=== PATIENT | female | born 1975 | race Caucasian/White ===

== ENCOUNTER 2022-01-27 16:20 | Inpatient (IN) | payer OTHER ==
[2022-01-27 16:41] VITALS: BMI 26.2
[2022-01-27 19:30] LABS: BASO % 0.4 % (0-2.0); EOS % 0.9 % (0-4.5); HEMATOCRIT 39.4 % (32.4-45.2); LYMPH % 21.8 % (8-40); MCH 31.3 pg (25.7-33.7); MCHC 32.9 g/dl (32.0-36.0); MEAN PLT VOLUME 9.3 fl (7.5-11.1); MONO % 6.3 % (3.8-10.2); NEUT % 70.6 % (42.8-82.8); PLATELET COUNT 242 10^3/uL (134-434); RBC 4.15 M/mm3 (3.60-5.2); RDW 13.7 % (11.6-15.6)
[2022-01-27 19:38] LABS: INR 1.03 (0.83-1.09); PROTHROMBIN TIME (PATIENT) 11.8 SEC (9.7-13.0)
[2022-01-27] MEDS ORDERED: morphine CARPU-JECT 4 MG/1 ML DISP.SYRIN IVPUSH ONE (20:22)
[2022-01-27] MEDS ORDERED: morphine SULFATE 4 MG/ML VIAL ONE (20:26)
[2022-01-27 20:40] LABS: ALBUMIN 3.6 g/dl (3.4-5.0); BLOOD UREA NITROGEN 22.9 mg/dL (7-18); CALCIUM 9.3 mg/dL (8.5-10.1)
[2022-01-27 20:43] LABS: CREATININE 0.7 mg/dL (0.55-1.3)
[2022-01-27 20:46] LABS: BILIRUBIN,TOTAL 0.3 mg/dL (0.2-1)
[2022-01-27 21:21] LABS: PH,URINE 5.5 (5.0-8.0); URINE APPEARANCE CLEAR; URINE BILIRUBIN NEGATIVE (NEGATIVE); URINE COLOR YELLOW; URINE GLUCOSE (UA) NEGATIVE (NEGATIVE); URINE KETONE NEGATIVE (NEGATIVE); URINE LEUK ESTERASE NEGATIVE (NEGATIVE); URINE NITRITE NEGATIVE (NEGATIVE); URINE PROTEIN NEGATIVE (NEGATIVE); URINE UROBILINOGEN 0.2 mg/dL (0.2-1.0)
[2022-01-28] MEDS ORDERED: clonazePAM 0.5 MG TABLET PO PRN (01:03)
[2022-01-28] MEDS ORDERED: ERGOCALCIFEROL (VIT D2) 50,000 UNIT (1.25 MG) CAPSULE PO SCH (01:15)
[2022-01-28] MEDS ORDERED: ACETAMINOPHEN INJECTION 100 ML IVPB ONE ×2 (01:23→09:42)
[2022-01-28] MEDS: ACETAMINOPHEN 1000 MG/100 ML BAG IVPB PRN ×2 (01:25→10:05)
[2022-01-28 07:57] LABS: BASO % 0.4 % (0-2.0); EOS % 1.1 % (0-4.5); HEMATOCRIT 36.6 % (32.4-45.2); HEMOGLOBIN 12.4 GM/dL (10.7-15.3); LYMPH % 31.3 % (8-40); MCH 31.4 pg (25.7-33.7); MCHC 33.9 g/dl (32.0-36.0); MEAN CELL VOLUME 92.9 fl (80-96); MEAN PLT VOLUME 8.9 fl (7.5-11.1); MONO % 8.2 % (3.8-10.2); PLATELET COUNT 200 10^3/uL (134-434); RBC 3.94 M/mm3 (3.60-5.2); RDW 13.2 % (11.6-15.6); WHITE BLOOD COUNT 5.7 K/mm3 (4.0-10.0)
[2022-01-28 08:19] LABS: CALCIUM 8.7 mg/dL (8.5-10.1)
[2022-01-28 08:20] LABS: ALBUMIN 3.3 g/dl (3.4-5.0); BLOOD UREA NITROGEN 19.9 mg/dL (7-18); MAGNESIUM 2.2 mg/dL (1.8-2.4)
[2022-01-28 08:23] LABS: CREATININE 0.5 mg/dL (0.55-1.3); PHOSPHOROUS 3.9 mg/dL (2.5-4.9)
[2022-01-28 08:25] LABS: BILIRUBIN,TOTAL 0.5 mg/dL (0.2-1); TOT PROT 6.2 g/dl (6.4-8.2)
[2022-01-28] MEDS ORDERED: LOSARTAN POTASSIUM 50 MG TABLET ONE (09:41)
[2022-01-28] MEDS ORDERED: TOPIRAMATE 25 MG TABLET ONE (09:41)
[2022-01-28] MEDS ORDERED: CARVEDILOL 6.25 MG TABLET (FP) ONE (09:42)
[2022-01-28] MEDS ORDERED: CITALOPRAM HYDROBROMIDE 10 MG TABLET ONE (09:42)
[2022-01-28] MEDS ORDERED: GABAPENTIN 400 MG CAPSULE ONE ×2 (09:42→14:48)
[2022-01-28] MEDS ORDERED: ENOXAPARIN NA (PORCINE) 40 MG/0.4 ML DISP.SYRIN SQ ONE (09:42)
[2022-01-28] MEDS ORDERED: ENOXAPARIN NA (PORCINE) 40 MG/0.4 ML DISP.SYRIN SQ SCH (10:00)
[2022-01-28] MEDS: TOPIRAMATE 25 MG TABLET PO SCH ×2 (10:06→22:25)
[2022-01-28] MEDS: LOSARTAN POTASSIUM 25 MG TABLET PO SCH (10:06)
[2022-01-28] MEDS: CARVEDILOL 6.25 MG TABLET (FP) PO SCH ×2 (10:06→22:26)
[2022-01-28] MEDS: GABAPENTIN 400 MG CAPSULE PO SCH ×3 (10:06→22:25)
[2022-01-28] MEDS: CITALOPRAM HYDROBROMIDE 20 MG TABLET PO SCH (10:06)
[2022-01-28] MEDS: SENNOSIDES 8.6MG TABLET (FP) PO SCH (22:25)
[2022-01-28] MEDS: traZODone HCL 50 MG TABLET (FP) PO SCH (22:26)
[2022-01-29] MEDS: GABAPENTIN 400 MG CAPSULE PO SCH ×3 (06:40→21:28)
[2022-01-29 11:09] LABS: BASO % 0.3 % (0-2.0); EOS % 1.3 % (0-4.5); HEMATOCRIT 38.4 % (32.4-45.2); HEMOGLOBIN 12.9 GM/dL (10.7-15.3); LYMPH % 23.6 % (8-40); MCH 31.3 pg (25.7-33.7); MCHC 33.6 g/dl (32.0-36.0); MEAN CELL VOLUME 93.2 fl (80-96); MEAN PLT VOLUME 9.1 fl (7.5-11.1); MONO % 7.7 % (3.8-10.2); NEUT % 67.1 % (42.8-82.8); PLATELET COUNT 223 10^3/uL (134-434); RBC 4.12 M/mm3 (3.60-5.2); RDW 13.5 % (11.6-15.6); WHITE BLOOD COUNT 5.5 K/mm3 (4.0-10.0)
[2022-01-29] MEDS: CITALOPRAM HYDROBROMIDE 20 MG TABLET PO SCH (11:13)
[2022-01-29] MEDS: TOPIRAMATE 25 MG TABLET PO SCH ×2 (11:14→21:28)
[2022-01-29] MEDS: LOSARTAN POTASSIUM 25 MG TABLET PO SCH (11:14)
[2022-01-29] MEDS: CARVEDILOL 6.25 MG TABLET (FP) PO SCH ×2 (11:15→21:28)
[2022-01-29 11:33] LABS: CALCIUM 8.8 mg/dL (8.5-10.1)
[2022-01-29 11:34] LABS: BLOOD UREA NITROGEN 14.8 mg/dL (7-18); MAGNESIUM 2.2 mg/dL (1.8-2.4)
[2022-01-29 11:36] LABS: CREATININE 0.7 mg/dL (0.55-1.3); PHOSPHOROUS 3.1 mg/dL (2.5-4.9)
[2022-01-29] MEDS ORDERED: ACETAMINOPHEN 1000 MG/100 ML BAG IVPB PRN (12:20)
[2022-01-29] MEDS ORDERED: ERGOCALCIFEROL (VIT D2) 50,000 UNIT (1.25 MG) CAPSULE PO SCH (18:00)
[2022-01-29] MEDS: ACETAMINOPHEN 325 MG TABLET (FP) PO PRN (18:12)
[2022-01-29] MEDS: traZODone HCL 50 MG TABLET (FP) PO SCH (21:28)
[2022-01-29] MEDS: SENNOSIDES 8.6MG TABLET (FP) PO SCH (21:28)
[2022-01-30] MEDS: ACETAMINOPHEN 325 MG TABLET (FP) PO PRN ×2 (06:02→13:55)
[2022-01-30] MEDS: GABAPENTIN 400 MG CAPSULE PO SCH ×3 (06:05→21:19)
[2022-01-30] MEDS: TOPIRAMATE 25 MG TABLET PO SCH ×2 (09:57→21:19)
[2022-01-30] MEDS: CITALOPRAM HYDROBROMIDE 20 MG TABLET PO SCH (09:57)
[2022-01-30] MEDS: LOSARTAN POTASSIUM 25 MG TABLET PO SCH (09:57)
[2022-01-30] MEDS: CARVEDILOL 6.25 MG TABLET (FP) PO SCH ×2 (09:59→21:19)
[2022-01-30] MEDS: SENNOSIDES 8.6MG TABLET (FP) PO SCH (21:19)
[2022-01-30] MEDS: traZODone HCL 50 MG TABLET (FP) PO SCH (21:19)
[2022-01-31] MEDS: GABAPENTIN 400 MG CAPSULE PO SCH ×3 (05:53→21:04)
[2022-01-31] MEDS: ACETAMINOPHEN 325 MG TABLET (FP) PO PRN (05:53)
[2022-01-31] MEDS: LOSARTAN POTASSIUM 25 MG TABLET PO SCH (10:24)
[2022-01-31] MEDS: CARVEDILOL 6.25 MG TABLET (FP) PO SCH ×2 (10:24→21:04)
[2022-01-31] MEDS: TOPIRAMATE 25 MG TABLET PO SCH ×2 (10:34→21:04)
[2022-01-31] MEDS: CITALOPRAM HYDROBROMIDE 20 MG TABLET PO SCH (10:34)
[2022-01-31] MEDS ORDERED: ACETAMINOPHEN 1000 MG/100 ML BAG IVPB PRN (11:30)
[2022-01-31] MEDS ORDERED: THROMBIN (BOVINE) 20,000 UNIT VIAL TP ONE (14:34)
[2022-01-31] MEDS ORDERED: ceFAZolin SODIUM 1 GM VIAL ONE (14:34)
[2022-01-31] MEDS ORDERED: BUPIVACAINE HCL/PF 0.5% (5MG/ML) 10 ML VIAL ONE (14:34)
[2022-01-31] MEDS ORDERED: MIDAZOLAM HCL 2 MG/2 ML SINGLE DOSE VIAL ONE (14:42)
[2022-01-31] MEDS ORDERED: KETAMINE HCL 200 MG/20 ML VIAL ONE (15:17)
[2022-01-31] MEDS ORDERED: ROCURONIUM BROMIDE 50 MG/5 ML SYRINGE ONE (15:45)
[2022-01-31] MEDS ORDERED: ceFAZolin SODIUM 1 GM VIAL IVPB ONE (15:55)
[2022-01-31] MEDS ORDERED: NEOSTIGMINE METHYLSULFATE 0.5 MG/1 ML - 10 ML MDV ONE (16:20)
[2022-01-31] MEDS ORDERED: GLYCOPYRROLATE 0.2 MG/1 ML VIAL ONE (16:20)
[2022-01-31] MEDS ORDERED: ONDANSETRON 4 MG/2 ML VIAL ONE (16:20)
[2022-01-31] MEDS ORDERED: DEXAMETHASONE SOD PHOSPHATE 4 MG/1 ML VIAL ONE (16:20)
[2022-01-31] MEDS ORDERED: HYDROmorphone HCl 2 MG/ML VIAL ONE (17:01)
[2022-01-31] MEDS ORDERED: ONDANSETRON 4 MG/2 ML VIAL IVPUSH PRN ×2 (18:07→18:37)
[2022-01-31] MEDS ORDERED: LACTATED RINGERS SOLUTION 1,000 ML IV SCH (18:15)
[2022-01-31] MEDS ORDERED: clonazePAM 0.5 MG TABLET PO PRN (18:37)
[2022-01-31] MEDS: LACTATED RINGERS SOLUTION 1,000 ML IV SCH (20:23)
[2022-01-31] MEDS ORDERED: traZODone HCL 50 MG TABLET (FP) PO SCH (22:00)
[2022-01-31] MEDS ORDERED: SENNOSIDES 8.6MG TABLET (FP) PO SCH (22:00)
[2022-02-01] MEDS: GABAPENTIN 400 MG CAPSULE PO SCH ×2 (05:41→14:23)
[2022-02-01] MEDS: ACETAMINOPHEN 1000 MG/100 ML BAG IVPB PRN ×2 (08:40→14:23)
[2022-02-01] MEDS: LACTATED RINGERS SOLUTION 1,000 ML IV SCH (08:40)
[2022-02-01] MEDS: TOPIRAMATE 25 MG TABLET PO SCH (09:25)
[2022-02-01] MEDS: CARVEDILOL 6.25 MG TABLET (FP) PO SCH (09:46)
[2022-02-01] MEDS ORDERED: ARTIFICIAL TEARS (POLYVINYL ALCOHOL) OPTH DROPS OU PRN ×2 (10:00→22:01)
[2022-02-01] MEDS ORDERED: LOSARTAN POTASSIUM 25 MG TABLET PO SCH (10:00)
[2022-02-01] MEDS ORDERED: CITALOPRAM HYDROBROMIDE 20 MG TABLET PO SCH (10:00)
[2022-02-01 11:04] LABS: BASO % 0.1 % (0-2.0); EOS % 0.1 % (0-4.5); HEMATOCRIT 35.5 % (32.4-45.2); HEMOGLOBIN 11.8 GM/dL (10.7-15.3); LYMPH % 10.1 % (8-40); MCH 31.4 pg (25.7-33.7); MCHC 33.2 g/dl (32.0-36.0); MEAN CELL VOLUME 94.4 fl (80-96); MEAN PLT VOLUME 9.5 fl (7.5-11.1); MONO % 5.8 % (3.8-10.2); NEUT % 83.9 % (42.8-82.8); PLATELET COUNT 222 10^3/uL (134-434); RBC 3.76 M/mm3 (3.60-5.2); RDW 13.1 % (11.6-15.6)
[2022-02-01] MEDS ORDERED: ACETAMINOPHEN 325 MG TABLET (FP) PO PRN (11:37)
[2022-02-01] MEDS ORDERED: ONDANSETRON 4 MG/2 ML VIAL IVPUSH PRN (11:37)
[2022-02-01] MEDS ORDERED: LACTATED RINGERS SOLUTION 1,000 ML IV SCH ×2 (11:45→20:15)
[2022-02-01 13:22] LABS: CALCIUM 8.8 mg/dL (8.5-10.1); MAGNESIUM 1.9 mg/dL (1.8-2.4)
[2022-02-01 13:26] LABS: CREATININE 0.6 mg/dL (0.55-1.3); PHOSPHOROUS 3.8 mg/dL (2.5-4.9)
[2022-02-01] MEDS ORDERED: PROPOFOL 20 ML ONE ×9 (13:28→18:17)
[2022-02-01] MEDS ORDERED: MIDAZOLAM HCL 2 MG/2 ML SINGLE DOSE VIAL ONE (13:34)
[2022-02-01] MEDS ORDERED: ceFAZolin SODIUM 1 GM VIAL ONE (15:26)
[2022-02-01] MEDS ORDERED: BENZOIN/ALOE VERA/STORAX/TOLU 58 ML BOTTLE ONE (15:44)
[2022-02-01] MEDS ORDERED: ceFAZolin SODIUM 1 GM VIAL IVPB ONE (16:03)
[2022-02-01 19:45] LABS: HEMATOCRIT 26.2 % (32.4-45.2); HEMOGLOBIN 8.7 GM/dL (10.7-15.3); MCH 31.2 pg (25.7-33.7); MCHC 33.2 g/dl (32.0-36.0); MEAN PLT VOLUME 9.5 fl (7.5-11.1); PLATELET COUNT 173 10^3/uL (134-434); RBC 2.79 M/mm3 (3.60-5.2); RDW 13.1 % (11.6-15.6); WHITE BLOOD COUNT 13.1 K/mm3 (4.0-10.0)
[2022-02-01] MEDS ORDERED: HYDROmorphone *PCA* 10MG/50ML DISP.SYRIN ONE (20:12)
[2022-02-01] MEDS ORDERED: HYDROmorphone *PCA* 10MG/50ML DISP.SYRIN PCA SCH (20:15)
[2022-02-01] MEDS ORDERED: MUPIROCIN 2% TOPICAL OINTMENT FOR DECOLONIZATION NS SCH (22:00)
[2022-02-01] MEDS ORDERED: CHLORHEXIDINE GLUCONATE 4% CLEANSER FOR DECOLONIZATION TP SCH (22:00)
[2022-02-01 22:21] LABS: BASO % 0.2 % (0-2.0); EOS % 0.2 % (0-4.5); HEMATOCRIT 27.3 % (32.4-45.2); LYMPH % 11.6 % (8-40); MCH 31.2 pg (25.7-33.7); MCHC 33.2 g/dl (32.0-36.0); MEAN PLT VOLUME 9.2 fl (7.5-11.1); MONO % 6.2 % (3.8-10.2); NEUT % 81.8 % (42.8-82.8); PLATELET COUNT 151 10^3/uL (134-434); RDW 13.2 % (11.6-15.6)
[2022-02-01 22:41] LABS: BLOOD UREA NITROGEN 9.3 mg/dL (7-18); CALCIUM 8.1 mg/dL (8.5-10.1)
[2022-02-01 22:45] LABS: CREATININE 0.6 mg/dL (0.55-1.3)
[2022-02-01] MEDS: ACETAMINOPHEN 1000 MG/100 ML BAG IVPB SCH (22:53)
[2022-02-01] MEDS: MUPIROCIN 2% TOPICAL OINTMENT FOR DECOLONIZATION NS SCH (22:54)
[2022-02-01] MEDS: CHLORHEXIDINE GLUCONATE 4% CLEANSER FOR DECOLONIZATION TP SCH (22:54)
[2022-02-02] MEDS: HYDROmorphone *PCA* 10MG/50ML DISP.SYRIN PCA SCH (00:26)
[2022-02-02] MEDS: METHOCARBAMOL 500 MG TABLET PO SCH ×4 (00:28→21:24)
[2022-02-02] MEDS ORDERED: DEXTROSE 5%-WATER - 50 ML IVPB ONE ×4 (00:32→20:26)
[2022-02-02] MEDS ORDERED: ceFAZolin SODIUM 1 GM VIAL ONE ×4 (00:32→20:25)
[2022-02-02] MEDS: CEFAZOLIN 1 GM in DEXTROSE 5%-WATER - 50 ML IVPB SCH ×4 (00:33→17:10)
[2022-02-02] MEDS: ACETAMINOPHEN 1000 MG/100 ML BAG IVPB SCH ×4 (05:53→19:50)
[2022-02-02] MEDS: GABAPENTIN 400 MG CAPSULE PO SCH ×3 (06:04→21:23)
[2022-02-02] MEDS ORDERED: LACTATED RINGERS SOLUTION 1000 ML INFUS.BAG IV ONE (07:21)
[2022-02-02 07:36] LABS: BASO % 0.2 % (0-2.0); EOS % 0.3 % (0-4.5); HEMATOCRIT 28.2 % (32.4-45.2); HEMOGLOBIN 9.5 GM/dL (10.7-15.3); LYMPH % 14.9 % (8-40); MCH 31.1 pg (25.7-33.7); MCHC 33.7 g/dl (32.0-36.0); MEAN CELL VOLUME 92.4 fl (80-96); MEAN PLT VOLUME 9.9 fl (7.5-11.1); MONO % 7.4 % (3.8-10.2); NEUT % 77.2 % (42.8-82.8); PLATELET COUNT 134 10^3/uL (134-434); RBC 3.05 M/mm3 (3.60-5.2); RDW 13.8 % (11.6-15.6)
[2022-02-02 07:53] LABS: BLOOD UREA NITROGEN 10.7 mg/dL (7-18); CALCIUM 7.7 mg/dL (8.5-10.1); MAGNESIUM 1.7 mg/dL (1.8-2.4)
[2022-02-02 07:57] LABS: CREATININE 0.5 mg/dL (0.55-1.3); PHOSPHOROUS 3.1 mg/dL (2.5-4.9)
[2022-02-02] MEDS: TOPIRAMATE 25 MG TABLET PO SCH ×2 (09:30→21:25)
[2022-02-02] MEDS: clonazePAM 0.5 MG TABLET PO PRN (09:31)
[2022-02-02] MEDS: CITALOPRAM HYDROBROMIDE 20 MG TABLET PO SCH (09:31)
[2022-02-02] MEDS: MUPIROCIN 2% TOPICAL OINTMENT FOR DECOLONIZATION NS SCH ×2 (09:32→21:24)
[2022-02-02] MEDS: LACTATED RINGERS SOLUTION 1,000 ML IV SCH (09:32)
[2022-02-02] MEDS ORDERED: LOSARTAN POTASSIUM 25 MG TABLET PO SCH (10:00)
[2022-02-02] MEDS: PANTOPRAZOLE 40 MG TABLET PO SCH (17:10)
[2022-02-02 20:47] LABS: BASO % 0.2 % (0-2.0); EOS % 0.8 % (0-4.5); HEMOGLOBIN 8.9 GM/dL (10.7-15.3); LYMPH % 16.7 % (8-40); MCH 31.2 pg (25.7-33.7); MCHC 34.1 g/dl (32.0-36.0); MEAN CELL VOLUME 91.6 fl (80-96); MEAN PLT VOLUME 9.1 fl (7.5-11.1); MONO % 10.3 % (3.8-10.2); PLATELET COUNT 134 10^3/uL (134-434); RBC 2.84 M/mm3 (3.60-5.2); RDW 13.9 % (11.6-15.6); WHITE BLOOD COUNT 7.7 K/mm3 (4.0-10.0)
[2022-02-02] MEDS: traZODone HCL 50 MG TABLET (FP) PO SCH (21:22)
[2022-02-02] MEDS: CHLORHEXIDINE GLUCONATE 4% CLEANSER FOR DECOLONIZATION TP SCH (21:24)
[2022-02-02] MEDS: CARVEDILOL 6.25 MG TABLET (FP) PO SCH (21:24)
[2022-02-02] MEDS ORDERED: SENNOSIDES 8.6MG TABLET (FP) PO SCH (22:00)
[2022-02-03] MEDS: ACETAMINOPHEN 1000 MG/100 ML BAG IVPB SCH ×4 (00:43→17:57)
[2022-02-03] MEDS: CEFAZOLIN 1 GM in DEXTROSE 5%-WATER - 50 ML IVPB SCH (02:32)
[2022-02-03] MEDS: HYDROmorphone *PCA* 10MG/50ML DISP.SYRIN PCA SCH (03:48)
[2022-02-03] MEDS: GABAPENTIN 400 MG CAPSULE PO SCH ×3 (05:32→21:09)
[2022-02-03] MEDS: METHOCARBAMOL 500 MG TABLET PO SCH ×3 (05:32→21:09)
[2022-02-03 07:27] LABS: BASO % 0.3 % (0-2.0); EOS % 0.9 % (0-4.5); HEMATOCRIT 28.5 % (32.4-45.2); HEMOGLOBIN 9.7 GM/dL (10.7-15.3); LYMPH % 12.6 % (8-40); MCH 31.4 pg (25.7-33.7); MCHC 34.1 g/dl (32.0-36.0); MONO % 9.2 % (3.8-10.2); PLATELET COUNT 141 10^3/uL (134-434); RDW 14.1 % (11.6-15.6); WHITE BLOOD COUNT 7.6 K/mm3 (4.0-10.0)
[2022-02-03 07:52] LABS: BLOOD UREA NITROGEN 4.4 mg/dL (7-18); CALCIUM 7.9 mg/dL (8.5-10.1)
[2022-02-03 07:53] LABS: MAGNESIUM 1.7 mg/dL (1.8-2.4)
[2022-02-03 07:55] LABS: CREATININE 0.4 mg/dL (0.55-1.3); PHOSPHOROUS 2.6 mg/dL (2.5-4.9)
[2022-02-03 07:56] LABS: BILIRUBIN,TOTAL 0.3 mg/dL (0.2-1); TOT PROT 4.5 g/dl (6.4-8.2)
[2022-02-03 07:57] LABS: ALBUMIN 2.4 g/dl (3.4-5.0)
[2022-02-03] MEDS ORDERED: oxyCODONE HCL 5 MG TABLET PO PRN (08:24)
[2022-02-03] MEDS: LACTATED RINGERS SOLUTION 1,000 ML IV SCH (09:26)
[2022-02-03] MEDS: morphine SULFATE 4 MG/ML VIAL IVPUSH PRN ×2 (09:27→14:18)
[2022-02-03] MEDS: PANTOPRAZOLE 40 MG TABLET PO SCH (09:36)
[2022-02-03] MEDS: TOPIRAMATE 25 MG TABLET PO SCH ×2 (09:36→21:09)
[2022-02-03] MEDS: CITALOPRAM HYDROBROMIDE 20 MG TABLET PO SCH (09:36)
[2022-02-03] MEDS: MUPIROCIN 2% TOPICAL OINTMENT FOR DECOLONIZATION NS SCH ×2 (09:36→21:10)
[2022-02-03] MEDS: LOSARTAN POTASSIUM 25 MG TABLET PO SCH (09:37)
[2022-02-03] MEDS: CARVEDILOL 6.25 MG TABLET (FP) PO SCH ×2 (09:37→21:10)
[2022-02-03] MEDS ORDERED: POLYETHYLENE GLYCOL 3350 119 GM BTL PO SCH (10:00)
[2022-02-03] MEDS ORDERED: LACTATED RINGERS SOLUTION 1,000 ML/1,000 ML INFUS.BAG IV STA ×2 (10:43→18:13)
[2022-02-03] MEDS ORDERED: MAGNESIUM OXIDE 400 MG TABLET (FP) PO ONE (10:45)
[2022-02-03] MEDS: DEXTROSE 5%-LACTATED RINGERS 1,000 ML IV SCH (12:01)
[2022-02-03] MEDS: POLYETHYLENE GLYCOL (HEALTHYLAX) 3350 17 GM PACKET PO SCH ×2 (12:05→21:11)
[2022-02-03] MEDS: oxyCODONE HCL 5 MG TABLET PO PRN (19:39)
[2022-02-03] MEDS: traZODone HCL 50 MG TABLET (FP) PO SCH (21:09)
[2022-02-03] MEDS: POTASSIUM CHLORIDE TABS 20 MEQ TABLET.ER (FP) PO SCH (21:10)
[2022-02-03] MEDS: CHLORHEXIDINE GLUCONATE 4% CLEANSER FOR DECOLONIZATION TP SCH (21:11)
[2022-02-03] MEDS ORDERED: LACTATED RINGERS SOLUTION 1000 ML INFUS.BAG IV ONE (23:20)
[2022-02-04] MEDS: ACETAMINOPHEN 1000 MG/100 ML BAG IVPB SCH (00:41)
[2022-02-04] MEDS: oxyCODONE HCL 5 MG TABLET PO PRN ×4 (05:16→22:18)
[2022-02-04] MEDS: METHOCARBAMOL 500 MG TABLET PO SCH (05:17)
[2022-02-04] MEDS: GABAPENTIN 400 MG CAPSULE PO SCH ×3 (05:17→22:18)
[2022-02-04 07:20] LABS: BASO % 0.3 % (0-2.0); EOS % 1.4 % (0-4.5); HEMATOCRIT 24.7 % (32.4-45.2); HEMOGLOBIN 8.4 GM/dL (10.7-15.3); LYMPH % 16.9 % (8-40); MCH 31.4 pg (25.7-33.7); MCHC 34.1 g/dl (32.0-36.0); MEAN CELL VOLUME 92.1 fl (80-96); MEAN PLT VOLUME 9.7 fl (7.5-11.1); NEUT % 71.4 % (42.8-82.8); PLATELET COUNT 149 10^3/uL (134-434); RBC 2.68 M/mm3 (3.60-5.2); WHITE BLOOD COUNT 6.5 K/mm3 (4.0-10.0)
[2022-02-04 07:30] LABS: CALCIUM 7.7 mg/dL (8.5-10.1)
[2022-02-04 07:31] LABS: BLOOD UREA NITROGEN 4.8 mg/dL (7-18); MAGNESIUM 1.7 mg/dL (1.8-2.4)
[2022-02-04 07:34] LABS: CREATININE 0.4 mg/dL (0.55-1.3); PHOSPHOROUS 2.4 mg/dL (2.5-4.9)
[2022-02-04 07:35] LABS: BILIRUBIN,TOTAL 0.4 mg/dL (0.2-1); TOT PROT 4.1 g/dl (6.4-8.2)
[2022-02-04] MEDS: morphine SULFATE 4 MG/ML VIAL IVPUSH PRN (08:42)
[2022-02-04] MEDS: ACETAMINOPHEN 500 MG TABLET (FP) PO SCH ×3 (09:30→22:16)
[2022-02-04] MEDS: MUPIROCIN 2% TOPICAL OINTMENT FOR DECOLONIZATION NS SCH ×2 (09:30→22:17)
[2022-02-04] MEDS: PANTOPRAZOLE 40 MG TABLET PO SCH (09:31)
[2022-02-04] MEDS: POTASSIUM CHLORIDE TABS 20 MEQ TABLET.ER (FP) PO SCH (09:31)
[2022-02-04] MEDS: TOPIRAMATE 25 MG TABLET PO SCH ×2 (09:31→22:18)
[2022-02-04] MEDS: CITALOPRAM HYDROBROMIDE 20 MG TABLET PO SCH (09:33)
[2022-02-04] MEDS: CARVEDILOL 6.25 MG TABLET (FP) PO SCH (09:33)
[2022-02-04] MEDS: LOSARTAN POTASSIUM 25 MG TABLET PO SCH (09:33)
[2022-02-04] MEDS: POLYETHYLENE GLYCOL (HEALTHYLAX) 3350 17 GM PACKET PO SCH ×2 (09:34→22:19)
[2022-02-04 16:33] LABS: HEMATOCRIT 26.2 % (32.4-45.2); HEMOGLOBIN 8.7 GM/dL (10.7-15.3); MCH 31.1 pg (25.7-33.7); MCHC 33.3 g/dl (32.0-36.0); MEAN CELL VOLUME 93.4 fl (80-96); MEAN PLT VOLUME 9.8 fl (7.5-11.1); PLATELET COUNT 167 10^3/uL (134-434); RDW 13.7 % (11.6-15.6); WHITE BLOOD COUNT 7.4 K/mm3 (4.0-10.0)
[2022-02-04] MEDS: DEXTROSE 5%-LACTATED RINGERS 1,000 ML IV SCH (19:18)
[2022-02-04] MEDS: traZODone HCL 50 MG TABLET (FP) PO SCH (22:18)
[2022-02-04] MEDS: SENNOSIDES/DOCUSATE COMBO (SENNA PLUS) TABLET (UD) PO SCH ×2 (22:19→22:28)
[2022-02-04] MEDS: CHLORHEXIDINE GLUCONATE 4% CLEANSER FOR DECOLONIZATION TP SCH (22:19)
[2022-02-05] MEDS: ACETAMINOPHEN 500 MG TABLET (FP) PO SCH ×4 (02:01→22:42)
[2022-02-05] MEDS: GABAPENTIN 400 MG CAPSULE PO SCH ×3 (06:06→22:44)
[2022-02-05 08:22] LABS: BASO % 0.3 % (0-2.0); EOS % 1.8 % (0-4.5); HEMATOCRIT 28.4 % (32.4-45.2); HEMOGLOBIN 9.7 GM/dL (10.7-15.3); LYMPH % 18.4 % (8-40); MCH 31.5 pg (25.7-33.7); MEAN CELL VOLUME 92.5 fl (80-96); MEAN PLT VOLUME 9.7 fl (7.5-11.1); MONO % 9.6 % (3.8-10.2); NEUT % 69.9 % (42.8-82.8); PLATELET COUNT 181 10^3/uL (134-434); RBC 3.07 M/mm3 (3.60-5.2); RDW 13.9 % (11.6-15.6); WHITE BLOOD COUNT 6.3 K/mm3 (4.0-10.0)
[2022-02-05 08:49] LABS: ALBUMIN 2.3 g/dl (3.4-5.0); CALCIUM 8.1 mg/dL (8.5-10.1)
[2022-02-05 08:50] LABS: MAGNESIUM 1.9 mg/dL (1.8-2.4); PHOSPHOROUS 3.1 mg/dL (2.5-4.9)
[2022-02-05 08:51] LABS: CREATININE 0.6 mg/dL (0.55-1.3)
[2022-02-05 08:52] LABS: BILIRUBIN,TOTAL 0.3 mg/dL (0.2-1); TOT PROT 4.7 g/dl (6.4-8.2)
[2022-02-05] MEDS: CITALOPRAM HYDROBROMIDE 20 MG TABLET PO SCH (09:06)
[2022-02-05] MEDS: MUPIROCIN 2% TOPICAL OINTMENT FOR DECOLONIZATION NS SCH (09:06)
[2022-02-05] MEDS: PANTOPRAZOLE 40 MG TABLET PO SCH (09:07)
[2022-02-05] MEDS: POLYETHYLENE GLYCOL (HEALTHYLAX) 3350 17 GM PACKET PO SCH ×2 (09:07→22:44)
[2022-02-05] MEDS: TOPIRAMATE 25 MG TABLET PO SCH ×2 (09:07→22:44)
[2022-02-05] MEDS: clonazePAM 0.5 MG TABLET PO PRN (09:08)
[2022-02-05] MEDS ORDERED: ERGOCALCIFEROL (VIT D2) 50,000 UNIT (1.25 MG) CAPSULE PO SCH ×2 (10:00)
[2022-02-05] MEDS ORDERED: clonazePAM 0.5 MG TABLET PO PRN (10:49)
[2022-02-05] MEDS ORDERED: oxyCODONE HCL 5 MG TABLET PO PRN (10:49)
[2022-02-05] MEDS ORDERED: ARTIFICIAL TEARS (POLYVINYL ALCOHOL) OPTH DROPS OU PRN (10:49)
[2022-02-05] MEDS: oxyCODONE HCL 5 MG TABLET PO PRN (14:31)
[2022-02-05] MEDS ORDERED: CHLORHEXIDINE GLUCONATE 4% CLEANSER FOR DECOLONIZATION TP SCH (22:00)
[2022-02-05] MEDS ORDERED: MUPIROCIN 2% TOPICAL OINTMENT FOR DECOLONIZATION NS SCH (22:00)
[2022-02-05] MEDS: traZODone HCL 50 MG TABLET (FP) PO SCH (22:43)
[2022-02-05] MEDS: SENNOSIDES/DOCUSATE COMBO (SENNA PLUS) TABLET (UD) PO SCH (22:49)
[2022-02-06] MEDS: ACETAMINOPHEN 500 MG TABLET (FP) PO SCH ×2 (03:00→10:12)
[2022-02-06] MEDS: GABAPENTIN 400 MG CAPSULE PO SCH ×3 (05:54→22:14)
[2022-02-06] MEDS: oxyCODONE HCL 5 MG TABLET PO PRN ×2 (10:08→22:23)
[2022-02-06] MEDS: CITALOPRAM HYDROBROMIDE 20 MG TABLET PO SCH (10:12)
[2022-02-06] MEDS: TOPIRAMATE 25 MG TABLET PO SCH ×2 (10:13→22:14)
[2022-02-06] MEDS: POLYETHYLENE GLYCOL (HEALTHYLAX) 3350 17 GM PACKET PO SCH (10:21)
[2022-02-06] MEDS: PANTOPRAZOLE 40 MG TABLET PO SCH (10:21)
[2022-02-06] MEDS: diphenhydrAMINE HCL 25 MG CAPSULE (FP) PO PRN ×2 (14:59→22:26)
[2022-02-06] MEDS: traZODone HCL 50 MG TABLET (FP) PO SCH (22:14)
[2022-02-07] MEDS: POLYETHYLENE GLYCOL (HEALTHYLAX) 3350 17 GM PACKET PO SCH ×3 (00:07→22:08)
[2022-02-07] MEDS: SENNOSIDES/DOCUSATE COMBO (SENNA PLUS) TABLET (UD) PO SCH ×2 (00:07→22:09)
[2022-02-07] MEDS: GABAPENTIN 400 MG CAPSULE PO SCH ×3 (06:11→22:08)
[2022-02-07] MEDS: diphenhydrAMINE HCL 25 MG CAPSULE (FP) PO PRN ×2 (06:11→22:20)
[2022-02-07] MEDS: oxyCODONE HCL 5 MG TABLET PO PRN ×2 (06:40→19:52)
[2022-02-07] MEDS: CITALOPRAM HYDROBROMIDE 20 MG TABLET PO SCH (10:38)
[2022-02-07] MEDS: PANTOPRAZOLE 40 MG TABLET PO SCH (10:38)
[2022-02-07] MEDS: TOPIRAMATE 25 MG TABLET PO SCH ×2 (10:39→22:09)
[2022-02-07] MEDS: ACETAMINOPHEN 1000 MG/100 ML BAG IVPB PRN ×2 (12:27→19:47)
[2022-02-07 12:50] LABS: BASO % 0.3 % (0-2.0); EOS % 1.5 % (0-4.5); HEMATOCRIT 32.2 % (32.4-45.2); HEMOGLOBIN 10.8 GM/dL (10.7-15.3); LYMPH % 19.8 % (8-40); MCHC 33.5 g/dl (32.0-36.0); MEAN CELL VOLUME 92.7 fl (80-96); MEAN PLT VOLUME 8.5 fl (7.5-11.1); MONO % 11.7 % (3.8-10.2); NEUT % 66.7 % (42.8-82.8); PLATELET COUNT 350 10^3/uL (134-434); RBC 3.47 M/mm3 (3.60-5.2); RDW 13.8 % (11.6-15.6); WHITE BLOOD COUNT 7.6 K/mm3 (4.0-10.0)
[2022-02-07 13:03] LABS: CALCIUM 8.5 mg/dL (8.5-10.1)
[2022-02-07 13:04] LABS: MAGNESIUM 2.2 mg/dL (1.8-2.4)
[2022-02-07 13:06] LABS: BLOOD UREA NITROGEN 7.3 mg/dL (7-18)
[2022-02-07 13:07] LABS: CREATININE 0.6 mg/dL (0.55-1.3); PHOSPHOROUS 2.6 mg/dL (2.5-4.9)
[2022-02-07 13:08] LABS: BILIRUBIN,TOTAL 0.4 mg/dL (0.2-1); TOT PROT 6.1 g/dl (6.4-8.2)
[2022-02-07 13:12] LABS: ALBUMIN 2.8 g/dl (3.4-5.0)
[2022-02-07] MEDS ORDERED: METHOCARBAMOL 500 MG TABLET PO SCH (14:00)
[2022-02-07] MEDS: BACLOFEN 10 MG TABLET (FP) PO SCH ×2 (16:03→22:08)
[2022-02-07] MEDS: traZODone HCL 50 MG TABLET (FP) PO SCH (22:09)
[2022-02-08] MEDS: oxyCODONE HCL 5 MG TABLET PO PRN ×5 (01:14→21:01)
[2022-02-08] MEDS: GABAPENTIN 400 MG CAPSULE PO SCH ×3 (05:44→22:42)
[2022-02-08] MEDS: BACLOFEN 10 MG TABLET (FP) PO SCH ×3 (05:44→22:42)
[2022-02-08] MEDS: ACETAMINOPHEN 1000 MG/100 ML BAG IVPB PRN ×3 (05:44→18:49)
[2022-02-08 09:32] LABS: BASO % 0.3 % (0-2.0); EOS % 1.9 % (0-4.5); HEMATOCRIT 26.7 % (32.4-45.2); HEMOGLOBIN 9.1 GM/dL (10.7-15.3); LYMPH % 18.3 % (8-40); MCH 31.3 pg (25.7-33.7); MEAN CELL VOLUME 92.2 fl (80-96); MEAN PLT VOLUME 8.6 fl (7.5-11.1); MONO % 11.7 % (3.8-10.2); NEUT % 67.8 % (42.8-82.8); PLATELET COUNT 288 10^3/uL (134-434); RBC 2.89 M/mm3 (3.60-5.2); RDW 13.6 % (11.6-15.6)
[2022-02-08] MEDS: TOPIRAMATE 25 MG TABLET PO SCH ×2 (09:40→22:42)
[2022-02-08] MEDS: CITALOPRAM HYDROBROMIDE 20 MG TABLET PO SCH (09:40)
[2022-02-08] MEDS: PANTOPRAZOLE 40 MG TABLET PO SCH (09:40)
[2022-02-08] MEDS: POLYETHYLENE GLYCOL (HEALTHYLAX) 3350 17 GM PACKET PO SCH ×2 (09:40→22:43)
[2022-02-08 10:11] LABS: CALCIUM 8.1 mg/dL (8.5-10.1)
[2022-02-08 10:12] LABS: BLOOD UREA NITROGEN 8.9 mg/dL (7-18); MAGNESIUM 2.2 mg/dL (1.8-2.4)
[2022-02-08 10:15] LABS: CREATININE 0.6 mg/dL (0.55-1.3); PHOSPHOROUS 3.3 mg/dL (2.5-4.9)
[2022-02-08 16:24] LABS: INR 1.13 (0.83-1.09)
[2022-02-08 16:27] LABS: ACTIVATED PTT 29.5 SECONDS (25.2-36.5)
[2022-02-08 18:01] LABS: EPI CELLS 22 /uL (0-25.1); HYALINE CASTS 1 /uL (0-3.1); PH,URINE 6.5 (5.0-8.0); URINE APPEARANCE CLOUDY; URINE BACTERIA 459 /uL (0-1359); URINE BILIRUBIN NEGATIVE (NEGATIVE); URINE COLOR YELLOW; URINE GLUCOSE (UA) NEGATIVE (NEGATIVE); URINE KETONE NEGATIVE (NEGATIVE); URINE LEUK ESTERASE NEGATIVE (NEGATIVE); URINE NITRITE NEGATIVE (NEGATIVE); URINE PROTEIN NEGATIVE (NEGATIVE); URINE RBC 53 /uL (0-23.9); URINE UROBILINOGEN 0.2 mg/dL (0.2-1.0); URINE WBC 16 /uL (0-25.8)
[2022-02-08] MEDS: traZODone HCL 50 MG TABLET (FP) PO SCH (22:42)
[2022-02-08] MEDS: SENNOSIDES/DOCUSATE COMBO (SENNA PLUS) TABLET (UD) PO SCH (22:42)
[2022-02-09] MEDS: GABAPENTIN 400 MG CAPSULE PO SCH ×3 (06:54→22:00)
[2022-02-09] MEDS: BACLOFEN 10 MG TABLET (FP) PO SCH ×3 (06:54→22:00)
[2022-02-09] MEDS: ACETAMINOPHEN 1000 MG/100 ML BAG IVPB PRN ×2 (09:24→19:52)
[2022-02-09] MEDS: POLYETHYLENE GLYCOL (HEALTHYLAX) 3350 17 GM PACKET PO SCH ×2 (09:25→22:00)
[2022-02-09] MEDS: CITALOPRAM HYDROBROMIDE 20 MG TABLET PO SCH (09:25)
[2022-02-09] MEDS: TOPIRAMATE 25 MG TABLET PO SCH ×2 (09:25→21:59)
[2022-02-09] MEDS: PANTOPRAZOLE 40 MG TABLET PO SCH (09:25)
[2022-02-09 09:55] LABS: BASO % 0.4 % (0-2.0); EOS % 2.1 % (0-4.5); HEMATOCRIT 26.9 % (32.4-45.2); HEMOGLOBIN 9.2 GM/dL (10.7-15.3); LYMPH % 17.6 % (8-40); MCH 31.7 pg (25.7-33.7); MCHC 34.1 g/dl (32.0-36.0); MEAN CELL VOLUME 92.9 fl (80-96); MEAN PLT VOLUME 7.9 fl (7.5-11.1); MONO % 10.2 % (3.8-10.2); NEUT % 69.7 % (42.8-82.8); PLATELET COUNT 365 10^3/uL (134-434); RDW 13.9 % (11.6-15.6); WHITE BLOOD COUNT 5.8 K/mm3 (4.0-10.0)
[2022-02-09 10:23] LABS: CALCIUM 8.3 mg/dL (8.5-10.1)
[2022-02-09 10:24] LABS: MAGNESIUM 2.3 mg/dL (1.8-2.4)
[2022-02-09 10:27] LABS: CREATININE 0.5 mg/dL (0.55-1.3); PHOSPHOROUS 2.8 mg/dL (2.5-4.9)
[2022-02-09] MEDS ORDERED: cefTRIAXone SODIUM 1 GM VIAL ONE (12:13)
[2022-02-09] MEDS ORDERED: DEXTROSE 5%-WATER - 50 ML IVPB ONE (12:13)
[2022-02-09] MEDS: CEFTRIAXONE 1 GM in DEXTROSE 5%-WATER - 50 ML IVPB SCH (12:45)
[2022-02-09] MEDS: oxyCODONE HCL 5 MG TABLET PO PRN ×2 (12:46→22:02)
[2022-02-09] MEDS: metroNIDAZOLE 250 MG TABLET PO SCH ×2 (13:38→22:00)
[2022-02-09] MEDS: traZODone HCL 50 MG TABLET (FP) PO SCH (22:02)
[2022-02-09] MEDS: SENNOSIDES/DOCUSATE COMBO (SENNA PLUS) TABLET (UD) PO SCH (22:02)
[2022-02-09] MEDS: SODIUM CHLORIDE 1,000 ML IV SCH (23:00)
[2022-02-10] MEDS: ACETAMINOPHEN 1000 MG/100 ML BAG IVPB PRN ×2 (04:03→12:09)
[2022-02-10] MEDS: oxyCODONE HCL 5 MG TABLET PO PRN ×2 (05:33→10:15)
[2022-02-10] MEDS: GABAPENTIN 400 MG CAPSULE PO SCH ×3 (05:33→22:05)
[2022-02-10] MEDS: BACLOFEN 10 MG TABLET (FP) PO SCH (05:33)
[2022-02-10] MEDS ORDERED: cefTRIAXone SODIUM 1 GM VIAL ONE (10:00)
[2022-02-10] MEDS ORDERED: DEXTROSE 5%-WATER - 50 ML IVPB ONE (10:00)
[2022-02-10] MEDS: CEFTRIAXONE 1 GM in DEXTROSE 5%-WATER - 50 ML IVPB SCH (10:12)
[2022-02-10] MEDS: SODIUM CHLORIDE 1,000 ML IV SCH ×2 (10:14→22:30)
[2022-02-10] MEDS: POLYETHYLENE GLYCOL (HEALTHYLAX) 3350 17 GM PACKET PO SCH ×2 (10:14→22:12)
[2022-02-10] MEDS: TOPIRAMATE 25 MG TABLET PO SCH ×2 (10:15→22:02)
[2022-02-10] MEDS: CITALOPRAM HYDROBROMIDE 20 MG TABLET PO SCH (10:16)
[2022-02-10] MEDS: PANTOPRAZOLE 40 MG TABLET PO SCH (10:16)
[2022-02-10] MEDS: metroNIDAZOLE 250 MG TABLET PO SCH ×2 (10:17→22:03)
[2022-02-10 11:54] LABS: BASO % 0.6 % (0-2.0); EOS % 1.5 % (0-4.5); HEMATOCRIT 29.1 % (32.4-45.2); HEMOGLOBIN 9.9 GM/dL (10.7-15.3); LYMPH % 17.6 % (8-40); MCH 31.6 pg (25.7-33.7); MCHC 33.9 g/dl (32.0-36.0); MEAN PLT VOLUME 8.2 fl (7.5-11.1); MONO % 8.6 % (3.8-10.2); NEUT % 71.7 % (42.8-82.8); PLATELET COUNT 500 10^3/uL (134-434); RBC 3.13 M/mm3 (3.60-5.2); WHITE BLOOD COUNT 6.7 K/mm3 (4.0-10.0)
[2022-02-10 12:29] LABS: CALCIUM 8.5 mg/dL (8.5-10.1)
[2022-02-10 12:30] LABS: ALBUMIN 2.8 g/dl (3.4-5.0); BLOOD UREA NITROGEN 8.2 mg/dL (7-18); MAGNESIUM 2.4 mg/dL (1.8-2.4)
[2022-02-10 12:33] LABS: CREATININE 0.5 mg/dL (0.55-1.3); PHOSPHOROUS 2.3 mg/dL (2.5-4.9)
[2022-02-10 12:34] LABS: BILIRUBIN,TOTAL 0.5 mg/dL (0.2-1); TOT PROT 6.2 g/dl (6.4-8.2)
[2022-02-10] MEDS: oxyCODONE HCL 10 MG SUSTAINED ACTING TABLET PO SCH ×2 (13:41→22:05)
[2022-02-10] MEDS ORDERED: SODIUM PHOSPHATE - 15 MM in SODIUM CHLORIDE 250 ML IVPB ONE (17:09)
[2022-02-10] MEDS: traZODone HCL 50 MG TABLET (FP) PO SCH (22:04)
[2022-02-10] MEDS: SENNOSIDES/DOCUSATE COMBO (SENNA PLUS) TABLET (UD) PO SCH (22:12)
[2022-02-11] MEDS: GABAPENTIN 400 MG CAPSULE PO SCH ×2 (05:16→14:24)
[2022-02-11] MEDS: SODIUM CHLORIDE 1,000 ML IV SCH ×3 (05:17→22:15)
[2022-02-11] MEDS: TOPIRAMATE 25 MG TABLET PO SCH ×2 (09:20→22:05)
[2022-02-11] MEDS: CITALOPRAM HYDROBROMIDE 20 MG TABLET PO SCH (09:21)
[2022-02-11] MEDS: POLYETHYLENE GLYCOL (HEALTHYLAX) 3350 17 GM PACKET PO SCH ×2 (09:21→22:07)
[2022-02-11] MEDS: metroNIDAZOLE 250 MG TABLET PO SCH ×2 (09:21→22:07)
[2022-02-11] MEDS: oxyCODONE HCL 10 MG SUSTAINED ACTING TABLET PO SCH ×2 (09:22→22:04)
[2022-02-11] MEDS: PANTOPRAZOLE 40 MG TABLET PO SCH (09:22)
[2022-02-11 13:32] LABS: BASO % 0.3 % (0-2.0); EOS % 1.3 % (0-4.5); HEMATOCRIT 27.4 % (32.4-45.2); HEMOGLOBIN 9.3 GM/dL (10.7-15.3); LYMPH % 16.2 % (8-40); MCH 31.5 pg (25.7-33.7); MEAN CELL VOLUME 92.7 fl (80-96); MEAN PLT VOLUME 7.7 fl (7.5-11.1); MONO % 7.6 % (3.8-10.2); NEUT % 74.6 % (42.8-82.8); PLATELET COUNT 528 10^3/uL (134-434); RBC 2.96 M/mm3 (3.60-5.2); RDW 14.1 % (11.6-15.6); WHITE BLOOD COUNT 6.4 K/mm3 (4.0-10.0)
[2022-02-11 14:10] LABS: BLOOD UREA NITROGEN 6.8 mg/dL (7-18); CALCIUM 8.3 mg/dL (8.5-10.1)
[2022-02-11] MEDS ORDERED: GABAPENTIN 400 MG CAPSULE PO SCH (14:10)
[2022-02-11 14:11] LABS: MAGNESIUM 2.2 mg/dL (1.8-2.4)
[2022-02-11 14:13] LABS: CHOLESTEROL 128 mg/dL (50-200); PHOSPHOROUS 2.9 mg/dL (2.5-4.9)
[2022-02-11 14:14] LABS: CREATININE 0.5 mg/dL (0.55-1.3); LDL CHOLESTEROL (ONLY SJRH) 70 mg/dL (5-100); TRIGLYCERIDES 104 mg/dL (0-150)
[2022-02-11 14:19] LABS: HDL CHOLESTEROL 43 mg/dL (40-60)
[2022-02-11] MEDS: oxyCODONE HCL 5 MG TABLET PO PRN (14:40)
[2022-02-11] MEDS: LIDOCAINE 5% TOPICAL PATCH TP SCH (14:41)
[2022-02-11] MEDS ORDERED: diphenhydrAMINE HCL 25 MG CAPSULE (FP) PO ONE (20:05)
[2022-02-11] MEDS: GABAPENTIN 300 MG CAPSULE PO SCH (22:04)
[2022-02-11] MEDS: ACETAMINOPHEN 500 MG TABLET (FP) PO SCH (22:05)
[2022-02-11] MEDS: LIDOCAINE PATCH REMOVAL MC SCH (22:07)
[2022-02-11] MEDS: SENNOSIDES/DOCUSATE COMBO (SENNA PLUS) TABLET (UD) PO SCH (22:07)
[2022-02-11] MEDS: traZODone HCL 50 MG TABLET (FP) PO SCH (22:07)
[2022-02-12] MEDS: GABAPENTIN 300 MG CAPSULE PO SCH ×3 (05:50→21:24)
[2022-02-12] MEDS: ACETAMINOPHEN 500 MG TABLET (FP) PO SCH ×3 (05:50→21:25)
[2022-02-12] MEDS ORDERED: ERGOCALCIFEROL (VIT D2) 50,000 UNIT (1.25 MG) CAPSULE PO SCH (10:00)
[2022-02-12] MEDS: POLYETHYLENE GLYCOL (HEALTHYLAX) 3350 17 GM PACKET PO SCH ×2 (10:17→21:22)
[2022-02-12] MEDS: metroNIDAZOLE 250 MG TABLET PO SCH ×2 (10:18→21:23)
[2022-02-12 10:21] LABS: BASO % 0.6 % (0-2.0); EOS % 2.3 % (0-4.5); HEMATOCRIT 24.2 % (32.4-45.2); HEMOGLOBIN 8.1 GM/dL (10.7-15.3); LYMPH % 27.3 % (8-40); MCH 31.5 pg (25.7-33.7); MCHC 33.6 g/dl (32.0-36.0); MEAN CELL VOLUME 93.6 fl (80-96); MEAN PLT VOLUME 7.4 fl (7.5-11.1); MONO % 9.8 % (3.8-10.2); PLATELET COUNT 451 10^3/uL (134-434); RBC 2.58 M/mm3 (3.60-5.2); RDW 14.2 % (11.6-15.6); WHITE BLOOD COUNT 4.9 K/mm3 (4.0-10.0)
[2022-02-12] MEDS: LIDOCAINE 5% TOPICAL PATCH TP SCH (10:22)
[2022-02-12] MEDS: oxyCODONE HCL 10 MG SUSTAINED ACTING TABLET PO SCH ×2 (10:23→21:24)
[2022-02-12] MEDS: PANTOPRAZOLE 40 MG TABLET PO SCH (10:24)
[2022-02-12] MEDS: TOPIRAMATE 25 MG TABLET PO SCH ×2 (10:24→21:21)
[2022-02-12] MEDS: CITALOPRAM HYDROBROMIDE 20 MG TABLET PO SCH (10:30)
[2022-02-12] MEDS: SODIUM CHLORIDE 1,000 ML IV SCH (10:35)
[2022-02-12 10:51] LABS: ALBUMIN 2.3 g/dl (3.4-5.0); BLOOD UREA NITROGEN 8.4 mg/dL (7-18); CALCIUM 8.1 mg/dL (8.5-10.1); MAGNESIUM 2.2 mg/dL (1.8-2.4)
[2022-02-12 10:54] LABS: CREATININE 0.4 mg/dL (0.55-1.3); PHOSPHOROUS 3.1 mg/dL (2.5-4.9)
[2022-02-12 10:55] LABS: BILIRUBIN,TOTAL 0.3 mg/dL (0.2-1); TOT PROT 4.9 g/dl (6.4-8.2)
[2022-02-12] MEDS: diphenhydrAMINE HCL 25 MG CAPSULE (FP) PO SCH ×2 (12:35→21:23)
[2022-02-12 14:32] VITALS: RESP 18
[2022-02-12] MEDS: traZODone HCL 50 MG TABLET (FP) PO SCH (21:23)
[2022-02-12] MEDS: LIDOCAINE PATCH REMOVAL MC SCH (21:24)
[2022-02-12] MEDS: SENNOSIDES/DOCUSATE COMBO (SENNA PLUS) TABLET (UD) PO SCH (21:25)
[2022-02-13] MEDS: oxyCODONE HCL 5 MG TABLET PO PRN (04:20)
[2022-02-13] MEDS: ACETAMINOPHEN 500 MG TABLET (FP) PO SCH ×3 (06:21→21:52)
[2022-02-13] MEDS: GABAPENTIN 300 MG CAPSULE PO SCH ×3 (06:21→22:03)
[2022-02-13] MEDS: CITALOPRAM HYDROBROMIDE 20 MG TABLET PO SCH (09:57)
[2022-02-13] MEDS: POLYETHYLENE GLYCOL (HEALTHYLAX) 3350 17 GM PACKET PO SCH ×2 (09:57→21:52)
[2022-02-13] MEDS: PANTOPRAZOLE 40 MG TABLET PO SCH (09:58)
[2022-02-13] MEDS: oxyCODONE HCL 10 MG SUSTAINED ACTING TABLET PO SCH ×2 (09:58→21:50)
[2022-02-13] MEDS: TOPIRAMATE 25 MG TABLET PO SCH ×2 (09:58→21:50)
[2022-02-13] MEDS: LIDOCAINE 5% TOPICAL PATCH TP SCH (09:59)
[2022-02-13] MEDS: diphenhydrAMINE HCL 25 MG CAPSULE (FP) PO SCH ×2 (10:01→21:52)
[2022-02-13] MEDS: metroNIDAZOLE 250 MG TABLET PO SCH ×2 (10:02→21:54)
[2022-02-13] MEDS: SODIUM CHLORIDE 1,000 ML IV SCH (21:47)
[2022-02-13] MEDS: SENNOSIDES/DOCUSATE COMBO (SENNA PLUS) TABLET (UD) PO SCH (21:50)
[2022-02-13] MEDS: traZODone HCL 50 MG TABLET (FP) PO SCH (21:51)
[2022-02-13] MEDS: LIDOCAINE PATCH REMOVAL MC SCH (22:00)
[2022-02-14] MEDS ORDERED: oxyCODONE HCL 5 MG TABLET PO ONE (03:39)
[2022-02-14] MEDS: GABAPENTIN 300 MG CAPSULE PO SCH ×2 (06:42→14:22)
[2022-02-14] MEDS: ACETAMINOPHEN 500 MG TABLET (FP) PO SCH ×2 (06:42→14:21)
[2022-02-14] MEDS: PANTOPRAZOLE 40 MG TABLET PO SCH (10:21)
[2022-02-14] MEDS: oxyCODONE HCL 10 MG SUSTAINED ACTING TABLET PO SCH (10:21)
[2022-02-14] MEDS: CITALOPRAM HYDROBROMIDE 20 MG TABLET PO SCH (10:21)
[2022-02-14] MEDS: TOPIRAMATE 25 MG TABLET PO SCH (10:22)
[2022-02-14] MEDS: diphenhydrAMINE HCL 25 MG CAPSULE (FP) PO SCH (10:23)
[2022-02-14] MEDS: POLYETHYLENE GLYCOL (HEALTHYLAX) 3350 17 GM PACKET PO SCH (10:23)
[2022-02-14] MEDS: metroNIDAZOLE 250 MG TABLET PO SCH (10:23)
[2022-02-14] MEDS: LIDOCAINE 5% TOPICAL PATCH TP SCH (10:23)
[2022-02-14 14:08] VITALS: BP 101/60; PULSE 69; TEMP 98.2
== END 2022-02-14 15:16 | disposition home or self-care (01) | DRG 460 ==
LOC: JERFT 16:20 → JERBED 21:41 → J6S 01-28 21:01 → JICU 02-01 21:35 → J5S 02-05 10:28
PROVIDERS: ADMIT Internal Medicine
PROC: 00PU0MZ Removal of Neurostimulator Lead from Spinal Canal, Open Approach (ICD-10-PCS; 2022-01-31)
PROC: 0RN Upper Joints, Release (ICD-10-PCS; 2022-01-31)
PROC: 0JPT0MZ Removal of Stimulator Generator from Trunk Subcutaneous Tissue and Fascia, Open Approach (ICD-10-PCS; 2022-01-31)
PROC: 0SP004Z Removal of Internal Fixation Device from Lumbar Vertebral Joint, Open Approach (ICD-10-PCS; 2022-02-01)
PROC: 0SP304Z Removal of Internal Fixation Device from Lumbosacral Joint, Open Approach (ICD-10-PCS; 2022-02-01)
PROC: 4A1004G Monitoring of Central Nervous Electrical Activity, Intraoperative, Open Approach (ICD-10-PCS; 2022-02-01)
PROC: 30233N1 Transfusion of Nonautologous Red Blood Cells into Peripheral Vein, Percutaneous Approach (ICD-10-PCS; 2022-02-01)
PROC: 0SG30K1 Fusion of Lumbosacral Joint with Nonautologous Tissue Substitute, Posterior Approach, Posterior Column, Open Approach (ICD-10-PCS; principal; 2022-02-01 16:00)
DX: M96.0 Pseudarthrosis after fusion or arthrodesis (principal); T85.698A Other mechanical complication of other specified internal prosthetic devices, implants and grafts, initial encounter; I97.620 Postprocedural hemorrhage of a circulatory system organ or structure following other procedure; Y83.9 Surgical procedure, unspecified as the cause of abnormal reaction of the patient, or of later complication, without mention of misadventure at the time of the procedure; M54.12 Radiculopathy, cervical region; M54.16 Radiculopathy, lumbar region; M54.9 Dorsalgia, unspecified; F41.8 Other specified anxiety disorders; D64.9 Anemia, unspecified; I10 Essential (primary) hypertension; E78.5 Hyperlipidemia, unspecified; G62.9 Polyneuropathy, unspecified; G43.909 Migraine, unspecified, not intractable, without status migrainosus; N83.209 Unspecified ovarian cyst, unspecified side; I95.9 Hypotension, unspecified; K59.00 Constipation, unspecified
CPT/HCPCS: 0241U-QW; 36415; 36430; 70450-TC; 70551-TC; 71046-TC-FY; 72050-TC-FY; 72100-TC-FY; 72125-TC; 72131-TC; 72141-TC; 72146-TC; 72148-TC; 74176-TC; 76000-TC-FY; 80048; 80053; 80061; 81003; 83036; 83735; 84100; 84443; 84703; 85025; 85027; 85610; 85730; 86850; 86900; 86901; 86922; 87040; 87086; 93005; 93010; 93970-TC; 94760; 97116-GP; 97162-GP; 99285-25; C9803-CS; J0475; P9058; U0003; U0005